=== PATIENT | male | born 1960 | race Caucasian/White ===

== ENCOUNTER 2018-06-24 20:34 | Emergency (ER) | payer OTHER ==
[2018-06-24] MEDS ORDERED: Divalproex 500 mg DR(BID formulation) PO STA (21:15)
--- NOTE | 2018-06-24 21:17 | ED PDOC ---
HPI: Wound Care - HPI Time Seen by Provider: 06/24/18 21:00 Chief Complaint (Nursing): Abnormal Skin Integrity Chief Complaint (Provider): scalp laceration History Per: Family History Of Present Illness: 57 y/o male history of cerebral palsy, epilepsy, mental retardation brought in by EMS with sister for evaluation of scalp laceration sustained prior to arrival. Sister states she was making patient a sandwich and stepped away for less than one minute and then heard patient say "ouch" and when she went into living room patient was sitting on couch with tape dispenser in his hand scratching top of head and laughing. Sister states patient has tendency to scratch scalp with objects. Denies fall, head injury, LOC, changes in mental status. Last tetanus within 10 years as per sister. Past Medical History Reviewed: Historical Data, Nursing Documentation, Vital Signs Vital Signs: Last Vital Signs Temp 98.0 F 06/24/18 20:37 Pulse 85 06/24/18 20:37 Resp 16 06/24/18 20:37 BP 140/74 06/24/18 20:37 Pulse Ox 97 06/24/18 20:37 - Medical History PMH: Seizures - Family History Family History: States: No Known Family Hx - Living Arrangements Living Arrangements: With Family - Allergies Allergies/Adverse Reactions: Allergies Allergy/AdvReac Type Severity Reaction Status Date / Time No Known Allergies Allergy Verified 06/24/18 20:37 Review of Systems ROS Statement: Except As Marked, All Systems Reviewed And Found Negative Skin: Positive for: Lesions (scalp laceration) Physical Exam - Reviewed Nursing Documentation Reviewed: Yes Vital Signs Reviewed: Yes - Physical Exam Appears: Positive for: Well, Non-toxic, No Acute Distress Head Exam: Positive for: NORMAL INSPECTION, NORMOCEPHALIC. Negative for: ATRAUMATIC (1.5cm superficial linear laceration to left parietal scalp; no active bleeding, surrounding edema/tenderness noted) Skin: Positive for: Normal Color Eye Exam: Positive for: Normal appearance, EOMI, PERRL ENT: Positive for: Normal ENT Inspection Cardiovascular/Chest: Positive for: Regular Rate, Rhythm Respiratory: Positive for: Normal Breath Sounds Gastrointestinal/Abdominal: Positive for: Normal Exam Back: Positive for: Normal Inspection Extremity: Positive for: Normal ROM Neurologic/Psych: Positive for: Alert, Oriented (baseline) - ECG O2 Sat by Pulse Oximetry: 97 - Progress ED Course And Treament: Sister requesting Depakote dose as he missed his 4pm dose Procedure: Wound Repair - Time Performed Time Performed: 22:00 - Time Out Time Out: Side verified, Site verified, Patient ID confirmed - Consent Obtained Consent obtained: Verbal - Performed by Performed by: Mid-level Provider - Indications Indication(s):: Laceration - Location Location:: Scalp Shape:: Linear Dimensions Length cm: 1.5 Dimensions width cm: 0.2 Depth:: Epidermis - Wound repair method Serafina:: Tissue glue, Steri-strips - Muscle repiar layer closed with Muscle repair layer closed with:: Dressing applied, Tetanus up to date Medical Decision Making Medical Decision Making: Sister educated on wound care, advised follow up with PMD within 2 days Return precautions given Disposition - Clinical Impression Clinical Impression: Scalp laceration - Patient ED Disposition Is Patient to be Admitted: No Counseled Patient/Family Regarding: Diagnosis, Need For Followup - Disposition Disposition: Routine/Home Disposition Time: 22:16 Condition: IMPROVED Instructions: Laceration Repair With Glue (DC)
[2018-06-24 22:54] VITALS: BP 116/59; PULSE 75; RESP 18; TEMP 98.4; O2SAT 100
== END 2018-06-24 23:09 | disposition home or self-care (01) ==
LOC: H.ER 20:34
DX: G40.909 Epilepsy, unspecified, not intractable, without status epilepticus (principal); S01.01XA Laceration without foreign body of scalp, initial encounter; W19.XXXA Unspecified fall, initial encounter; Y92.89 Other specified places as the place of occurrence of the external cause; G80.9 Cerebral palsy, unspecified; F79 Unspecified intellectual disabilities

== ENCOUNTER 2018-08-26 12:02 | Emergency (ER) | payer OTHER ==
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
[2018-08-26 15:49] VITALS: BP 112/80; PULSE 84; RESP 18; TEMP 98
[2018-08-27 01:00] VITALS: O2SAT 99
== END 2018-08-26 17:06 | disposition home or self-care (01) ==
LOC: H.ER 12:02
DX: R41.9 Unspecified symptoms and signs involving cognitive functions and awareness (principal)